=== PATIENT | female | born 1955 | race Caucasian/White ===

== ENCOUNTER → 2021-05-03 | Outpatient (CLI) | payer MEDICARE ==
[2018-10-14 11:15] VITALS: BP 141/70
[~2021-05-03] MED LIST: AMLO-187 PO; BUTA1TAB23 PO; CARV25TA2 PO; FLUT9.9S NS; LEVO500T8 PO; MECL12.582 PO; PRED20TA PO
--- NOTE | 2021-05-03 15:35 | RAD ---
EXAM: Chest, 2 views. HISTORY: COPD. COMPARISON: None. FINDINGS: 2 views of the chest are obtained. There is no infiltrate, pleural effusion or pneumothorax . The heart is normal in size. There is a cardiac pacemaker with leads in expected position. There is hyperinflation due to emphysema. There is mild chronic decreased vertebral body height at the mid th oracic levels. There are cholecystomy clips. IMPRESSION: Emphysema. No acute pulmonary finding. Electronically signed by: Karen Cruz MD (05/03/2021 3:32 PM) [id number]
== END ==
LOC: RAD 13:30
PROVIDERS: ATTEND Internal Medicine
DX: J43.9 Emphysema, unspecified (principal); Z95.0 Presence of cardiac pacemaker
CPT/HCPCS: 71046

== ENCOUNTER 2021-10-11 11:45 | Observation (INO) | payer MEDICARE ==
[~2021-10-11] VITALS: Ht 162.6 cm; Wt 58.9 kg
[~2021-10-11 11:45] MED LIST changes: -LEVO500T8 PO; +LEVO500T9 PO
--- NOTE | 2021-10-11 13:25 | PHYS DOC ---
Past Medical History Past Medical History: Hypertension, Other Additional Past Medical Histor: "PACEMAKER FOR HTN" Past Surgical History: Pacemaker Smoking Status: Current Every Day Smoker Alcohol Use: None Drug Use: None General Adult EDM: Chief Complaint: LOWER EXT PAIN HPI: HPI: Patient is a 66-year-old female who presents to the emergency department for left heel pain. Patient reports that she cut the back of her heel 2 weeks ago and has continued to have pain at the site. She states that she went to Dr. Cason's office last Sunday and he thought and wanted her to be admitted. The hospital is currently at full capacity and there are no beds available for the patient. She was to wait at home until there was a bed available but patient states that she could not wait any longer because her pain became too severe. She rates her pain 10 out of 10. She has been taking tramadol at home. Patient denies any fevers, body aches or joint pain, nausea, vomiting. Her vital signs are stable. She has been able to bear weight and ambulate on her foot. Review of Systems: Review of Systems: 14 body systems of the review of systems have been reviewed. See HPI for pertinent positive and negative responses, otherwise all other systems are negative, nonpertinent or noncontributory Heart Score: C/O Chest Pain: N/A Risk Factors: Risk Factors: DM, Current or recent (<one month) smoker, HTN, HLP, family history of CAD, obesity. Risk Scores: Score 0 - 3: 2.5% MACE over next 6 weeks - Discharge Home Score 4 - 6: 20.3% MACE over next 6 weeks - Admit for Clinical Observation Score 7 - 10: 72.7% MACE over next 6 weeks - Early Invasive Strategies Allergies: Allergies: Allergies Coded Allergies Type Severity Reaction Last Updated Verified Penicillins Allergy Intermediate 10/12/18 Yes aspirin Allergy Intermediate 10/12/18 Yes codeine Allergy Intermediate 10/12/18 Yes Physical Exam: PE: Constitutional: Well developed, well nourished, no acute distress, non-toxic appearance. [] HENT: Normocephalic, atraumatic, bilateral external ears normal, oropharynx mois t, no oral exudates, nose normal. [] Eyes: PERRL, EOMI, conjunctiva normal, no discharge. [] Neck: Normal range of motion, no tenderness, supple, no stridor. [] Cardiovascular:Heart rate regular rhythm, no murmur [] Lungs & Thorax: Bilateral breath sounds clear to auscultation [] Abdomen: Bowel sounds normal, soft, no tenderness, no masses, no pulsatile masses. [] Skin: Warm, dry, no erythema, no rash. [] Back: Normal range of motion Extremities: No tenderness, no cyanosis, no clubbing, ROM intact, no edema. Left foot: 3 cm laceration noted to patient's heel that appears to be healing we ll without any signs of infection, no redness/warmth/drainage, pain with palpation to site, neuro intact-2+ DP pulse, range of motion intact Neurologic: Alert and oriented X 3, normal motor function, normal sensory function, no focal deficits noted. [] Psychologic: Affect normal, judgement normal, mood normal. [] Current Patient Data: Labs: Laboratory Tests Test 10/11/21 13:48 White Blood Count 12.0 x10^3/uL Red Blood Count 4.15 x10^6/uL Hemoglobin 13.8 g/dL Hematocrit 40.4 % Mean Corpuscular Volume 97 fL Mean Corpuscular Hemoglobin 33 pg Mean Corpuscular Hemoglobin Concent 34 g/dL Red Cell Distribution Width 12.3 % Platelet Count 331 x10^3/uL Neutrophils (%) (Auto) 68 % Lymphocytes (%) (Auto) 22 % Monocytes (%) (Auto) 7 % Eosinophils (%) (Auto) 2 % Basophils (%) (Auto) 1 % Neutrophils # (Auto) 8.2 x10^3/uL Lymphocytes # (Auto) 2.6 x10^3/uL Monocytes # (Auto) 0.9 x10^3/uL Eosinophils # (Auto) 0.3 x10^3/uL Basophils # (Auto) 0.1 x10^3/uL Sodium Level 141 mmol/L Potassium Level 3.8 mmol/L Chloride Level 103 mmol/L Carbon Dioxide Level 28 mmol/L Anion Gap 10 Blood Urea Nitrogen 18 mg/dL Creatinine 0.7 mg/dL Estimated GFR (Cockcroft-Gault) 83.7 BUN/Creatinine Ratio 26 Glucose Level 95 mg/dL Lactic Acid Level 0.5 mmol/L Calcium Level 9.1 mg/dL Total Bilirubin 0.3 mg/dL Aspartate Amino Transf (AST/SGOT) 10 U/L Alanine Aminotransferase (ALT/SGPT) 18 U/L Alkaline Phosphatase 102 U/L Total Protein 7.3 g/dL Albumin 3.5 g/dL Albumin/Globulin Ratio 0.9 Current Medications Medications (Trade) Dose Ordered Sig/Seth Route PRN Reason Start Time Stop Time Status Last Admin Dose Admin Fentanyl Citrate (Fentanyl 2ml Vial) 50 mcg 1X ONCE IVP 10/11/21 13:30 10/11/21 13:31 DC 10/11/21 13:46 Sodium Chloride 1,000 ml @ 1,000 mls/hr 1X ONCE IV 10/11/21 13:30 10/11/21 14:29 DC 10/11/21 13:30 Ondansetron HCl (Zofran) 4 mg PRN Q8HRS PRN IVP NAUSEA/VOMITING 10/11/21 15:15 10/12/21 15:14 Fentanyl Citrate (Fentanyl 2ml Vial) 50 mcg 1X ONCE IVP 10/11/21 15:15 10/11/21 15:18 DC 10/11/21 15:56 EKG: EKG: [] Radiology/Procedures: Radiology/Procedures: []PROCEDURE: FOOT LEFT 3V EXAMINATION: Left foot radiograph. VIEWS: 3 views COMPARISON: None INDICATION:66 years, Female, wound on heel rule out osteomyelitis FINDINGS: Soft tissue edema and wound overlying the plantar surface of the heel with no associated bone erosion or periosteal reaction of the calcaneus. There is a bipartite medial sesamoid bone. No evidence of fracture or malalignment of the foot or ankle. Few small calcifications likely of the long plantar ligament. IMPRESSION: Soft tissue wound overlying the calcaneus with no radiographic evidence of osteomyelitis. If there is ongoing concern then follow-up with MRI is recommended. Electronically signed by: Raysa Gooden DO (10/11/2021 1:41 PM) [id number] DICTATED and SIGNED BY: RAYSA GOODEN DO DATE: 10/11/21 [id number] 0 Course & Med Decision Making: Course & Med Decision Making Pertinent Labs and Imaging studies reviewed. (See chart for details) [] Patient presents to the emergency department for pain management. Patient has a wound to the heel of her left foot that she states occurred 2 weeks ago, she states that Dr. Isabel saw her last Sunday and wanted to admit her. When asked if patient was a direct admit she states that she is supposed to be a direct admit and was told by the nursing supervisor tank storage that there was no beds available and that she should wait at home until there is a bed available if she is not any acute distress patient stated that she could not wait at home any longer because the pain was too severe. She reports that she has been taking tramadol at home. She is a poor historian and can only tell me that she needs to be admitted for heel pain. She states that she has a history of blockages that were seen on arterial studies in July. Patient's wound to her heel appears well healing without any signs of infection. Work-up in the ER consisted of blood work and x-ray to rule out osteomyelitis. Patient treated with IV fluids and pain medication. Lab work mostly unremarkable, non specific mild leukocytosis I spoke to Rebecca Pastor who requested an arterial ultrasound and vascular consult. Her sound shows left proximal stenosis and left deep femoral artery stenosis approximately 95 to 99%. I discussed these findings with Dr. Rg the vascular doctor on-call at [facility] who stated that they could see the patient outpatient on Sunday for an angio or they could see her while admitted. I spoke with Dr. Isabel who requested admittance of patient for this. I discussed findings with patient and care plan and she is agreeable at this time. ER bridge orders placed [id number]. Suleman Disclaimer: Suleman Disclaimer: This electronic medical record was generated, in whole or in part, using a voice recognition dictation system. Departure Departure Impression: Primary Impression: Peripheral artery disease Additional Impression: Intractable pain Disposition: ADMITTED INPATIENT Admitting Physician: Grace Isabel Condition: GOOD Referrals: GRACE ISABEL MD (PCP) [employer] Oct 11, 2021 13:25
[2021-10-11] MEDS ORDERED: IV NORMAL SALINE 1000ML BAG 1,000 ML IV ONE (13:30)
[2021-10-11] MEDS ORDERED: fentaNYL PF VIAL 100 MCG/2 ML VIAL IVP ONE ×2 (13:30→15:15)
--- NOTE | 2021-10-11 13:43 | RAD ---
EXAMINATION: Left foot radiograph. VIEWS: 3 views COMPARISON: None INDICATION:66 years, Female, wound on heel rule out osteomyelitis FINDINGS: Soft tissue edema and wound overlying the plantar surface of the heel with no associated bone erosion or periosteal reaction of the calcaneus. There is a bipartite medial sesamoid bone. No evidence of f racture or malalignment of the foot or ankle. Few small calcifications likely of the long plantar lig ament. IMPRESSION: Soft tissue wound overlying the calcaneus with no radiographic evidence of osteomyelitis. If there is ongoing concern then follow-up with MRI is recommended. Electronically signed by: Freedom Gooden DO (10/11/2021 1:41 PM) [id number]
[2021-10-11 13:57] LABS: BASO # 0.1 x10^3/uL (0.0-0.2); BASO % 1 % (0-3); EOS # 0.3 x10^3/uL (0.0-0.7); EOS % 2 % (0-3); HEMATOCRIT 40.4 % (36.0-47.0); HEMOGLOBIN 13.8 g/dL (12.0-15.5); LYMPH # 2.6 x10^3/uL (1.0-4.8); LYMPH % 22 % (24-48); MEAN CORPUSCULAR HEMOGLOBIN 33 pg (25-35); MEAN CORPUSCULAR HGB CONC 34 g/dL (31-37); MEAN CORPUSCULAR VOLUME 97 fL (79-100); MONO # 0.9 x10^3/uL (0.0-1.1); MONO % 7 % (0-9); NEUT # 8.2 x10^3/uL (1.8-7.7); NEUT % 68 % (31-73); PLATELET COUNT 331 x10^3/uL (140-400); RED BLOOD COUNT 4.15 x10^6/uL (3.50-5.40); RED CELL DISTRIBUTION WIDTH 12.3 % (11.5-14.5)
[2021-10-11 14:06] LABS: CALCIUM 9.1 mg/dL (8.5-10.1); CREATININE 0.7 mg/dL (0.6-1.0); GFR 83.7; POTASSIUM 3.8 mmol/L (3.5-5.1)
[2021-10-11 14:12] LABS: ALBUMIN 3.5 g/dL (3.4-5.0); ALBUMIN/GLOBULIN RATIO 0.9 (1.0-1.7); TOTAL BILIRUBIN 0.3 mg/dL (0.2-1.0); TOTAL PROTEIN 7.3 g/dL (6.4-8.2)
--- NOTE | 2021-10-11 14:53 | RAD ---
US LEFT LOWER EXTREMITY ARTERIAL DUPLEX EVAL Indication: Reason: vascular disease, c/o lower extremity pain; LT heel ulcer / Spl. Instructions: / History: Comparison: None. Procedure: Real-time grayscale, color flow Doppler, and Doppler spectral waveform analysis of the art erial system of the lower extremity is performed. Findings: Left lower extremity: Monophasic wave forms throughout the left lower extremity. Severe atheromatous plaque proximally. There is collateral vessels within the proximal to mid lower extremity. Elevated v elocity within the deep femoral artery measures 413 cm/s. Diminished flow within the distal left lowe r extremity. IMPRESSION: 1. Monophasic waveforms throughout the left lower extremity, may indicate proximal stenosis. CT calixto ogram can further assess as clinically warranted. 2. Severe atheromatous plaque. 3. Severely elevated velocity within the left deep femoral artery, may indicate 95-99 percent stenos is. Electronically signed by: Ricardo Troy DO (10/11/2021 2:51 PM) [facility]
[2021-10-11] MEDS ORDERED: ONDANSETRON PF 4 MG/2 ML VIAL. IVP PRN (15:15)
[2021-10-11] MEDS: ASPIRIN 325 MG TABLET PO SCH (17:00)
[2021-10-11 19:00] VITALS: BP 118/65
[2021-10-11] MEDS ORDERED: MECLIZINE HCL 12.5 MG TABLET. PO PRN (19:45)
[2021-10-11] MEDS: IV NORMAL SALINE 1000ML BAG 1,000 ML IV SCH (20:15)
[2021-10-11] MEDS: fentaNYL PF VIAL 100 MCG/2 ML VIAL IVP PRN (22:24)
[2021-10-11 23:02] VITALS: BP 141/62
[2021-10-12] VITALS (13 sets, daily range): BP systolic 110–153; BP diastolic 60–82
[2021-10-12] MEDS: fentaNYL PF VIAL 100 MCG/2 ML VIAL IVP PRN ×4 (01:54→15:00)
[2021-10-12 04:10] LABS: BASO # 0.1 x10^3/uL (0.0-0.2); BASO % 1 % (0-3); EOS # 0.2 x10^3/uL (0.0-0.7); EOS % 3 % (0-3); HEMATOCRIT 35.8 % (36.0-47.0); HEMOGLOBIN 12.4 g/dL (12.0-15.5); LYMPH # 3.3 x10^3/uL (1.0-4.8); LYMPH % 44 % (24-48); MEAN CORPUSCULAR HEMOGLOBIN 34 pg (25-35); MEAN CORPUSCULAR HGB CONC 35 g/dL (31-37); MEAN CORPUSCULAR VOLUME 98 fL (79-100); MONO # 0.8 x10^3/uL (0.0-1.1); MONO % 10 % (0-9); NEUT # 3.3 x10^3/uL (1.8-7.7); NEUT % 43 % (31-73); PLATELET COUNT 291 x10^3/uL (140-400); RED BLOOD COUNT 3.65 x10^6/uL (3.50-5.40); RED CELL DISTRIBUTION WIDTH 12.6 % (11.5-14.5); WHITE BLOOD COUNT 7.6 x10^3/uL (4.0-11.0)
[2021-10-12 04:16] LABS: PROTHROMBIN TIME PATIENT 13.1 SEC (11.7-14.0)
[2021-10-12 04:51] LABS: ALBUMIN 2.9 g/dL (3.4-5.0); ALBUMIN/GLOBULIN RATIO 0.9 (1.0-1.7); CREATININE 0.7 mg/dL (0.6-1.0); GFR 83.7; POTASSIUM 4.1 mmol/L (3.5-5.1); TOTAL BILIRUBIN 0.3 mg/dL (0.2-1.0); TOTAL PROTEIN 6.1 g/dL (6.4-8.2)
--- NOTE | 2021-10-12 06:21 | EKG ---
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
--- NOTE | 2021-10-12 07:30 | RAD ---
US RIGHT LOWER EXTREMITY ARTERIAL DUPLEX EVAL Indication: Reason: Peripheral arterial disease LT LEG SCANNED ON 10-11-21. Instructions: / Hist ory: Comparison: None. Procedure: Real-time grayscale, color flow Doppler, and Doppler spectral waveform analysis of the art erial system of the lower extremity is performed. Findings: Right lower extremity: Monophasic waveform within the superficial femoral, popliteal, posterior tibia l, peroneal, anterior tibial and dorsalis pedis arteries. Mildly elevated velocity within the right c ommon femoral artery measures 164 cm/s. Mildly elevated velocity within the deep femoral artery measu res 165 cm/s. Moderate atheromatous plaque. No occlusion. IMPRESSION: 1. Mildly elevated velocity within the right common femoral and deep femoral arteries, may indicate 30-49 percent stenosis. 2. Monophasic waveforms throughout the majority of the right lower extremity, may relate to proximal stenosis. 3. Moderate atheromatous plaque. Electronically signed by: Ricardo Troy DO (10/12/2021 7:27 AM) [facility]
[2021-10-12] MEDS: CARVEDILOL 12.5 MG TABLET. PO SCH ×2 (08:00→17:00)
--- NOTE | 2021-10-12 08:37 | RAD ---
EXAMINATION: Chest radiograph. VIEWS: Single AP view of the chest COMPARISON: 05/03/2021 INDICATION:66 years, Female, shortness of breath. FINDINGS: Left chest tube leak cardiac pacing device is in expected position. Normal cardiomediastinal silhouet te. Similar hyperinflation due to emphysema. No focal consolidation. No pleural effusion or pneumotho rax. No acute osseous process. IMPRESSION: No acute cardiopulmonary process. Electronically signed by: Freedom Gooden DO (10/12/2021 8:35 AM) [id number]
[2021-10-12] MEDS: FLUTICASONE 50MCG/NASAL SPRAY 16GM BOTTLE. NS SCH (09:00)
[2021-10-12] MEDS: ASPIRIN 325 MG TABLET PO SCH (09:00)
--- NOTE | 2021-10-12 09:28 | PDOC ---
Provider Note Date of Service: DATE: 10/12/21 TIME: 09:27 Provider Note Pt seen .H&P dictated.#[id number]. Justifications for Admission Other Justification JULIETA ISABEL MD Oct 12, 2021 09:28
--- NOTE | 2021-10-12 09:34 | PDOC2 ---
CONSULT Date of Service Date of Service DATE: 10/12/21 TIME: 09:21 Reason for Consult Reason for Consult: Heel ulcer PAD Referring Physician Referring Physician: Dr. 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 Who presents with left heel pain x3 weeks. She noticed a fissure starting on her left heel 3 weeks ago that has progressed and become more painful that has limited her job where she is on her feet most of the day. 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 She also has a small ulcer to her left knee that has been present for a couple of months and not healing. She has been a chronic smoker since age 18, however quit 4 days prior to admission. She denies any fevers, chills. She denies any procedures or surgeries to her legs or blood flow in the past. She does take a daily baby aspirin. She denies kidney disease. Past Medical History Cardiovascular: HTN, Other (Pacemaker) Past Surgical History Past Surgical History: Pacemaker, No pertinent history Family History Family History: Chronic Bronchitis Social History ALCOHOL: occassional Drugs: None Current Problem List Problem List Problems Medical Problems: (1) Intractable pain Status: Acute (2) Peripheral artery disease Status: Acute Current Medications Current Medications Current Medications Fentanyl Citrate (Fentanyl 2ml Vial) 50 mcg 1X ONCE IVP Last administered on 10/11/21at 13:46; Start 10/11/21 at 13:30; Stop 10/11/21 at 13:31; Status DC Sodium Chloride 1,000 ml @ 1,000 mls/hr 1X ONCE IV Last administered on 10/11/21at 13:30; Start 10/11/21 at 13:30; Stop 10/11/21 at 14:29; Status DC Ondansetron HCl (Zofran) 4 mg PRN Q8HRS PRN IVP NAUSEA/VOMITING; Start 10/11/21 at 15:15; Stop 10/12/21 at 15:14 Fentanyl Citrate (Fentanyl 2ml Vial) 50 mcg 1X ONCE IVP Last administered on 10/11/21at 15:56; Start 10/11/21 at 15:15; Stop 10/11/21 at 15:18; Status DC Aspirin (Aaron Aspirin) 325 mg DAILY PO ; Start 10/11/21 at 17:00 Amlodipine Besylate (Norvasc) 10 mg DAILY PO ; Start 10/12/21 at 09:00 Meclizine HCl (Antivert) 25 mg PRN Q6HRS PRN PO vertigo; Start 10/11/21 at 19:45 Carvedilol (Coreg) 12.5 mg BIDWMEALS PO ; Start 10/12/21 at 08:00 Fluticasone Propionate (Flonase) 2 spray DAILY NS ; Start 10/12/21 at 09:00 Sodium Chloride 1,000 ml @ 75 mls/hr [id number] IV Last administered on 10/11/21at 20:15; Start 10/11/21 at 20:15 Acetaminophen/ Hydrocodone Bitart (Lortab 5/325) 1 tab PRN Q6HRS PRN PO PAIN; Start 10/11/21 at 20:15 Fentanyl Citrate (Fentanyl 2ml Vial) 50 mcg PRN Q3HRS PRN IVP PAIN Last administered on 10/12/21at 05:38; Start 10/11/21 at 20:45 Active Scripts Active Flonase Allergy Relief (Fluticasone Propionate) 9.9 Ml [place].susp 2 Sprays NS DAILY 7 Days Meclizine Hcl 12.5 Mg Tablet 25 Mg PO PRN Q6HRS PRN 30 Days Reported Carvedilol 25 Mg Tablet 12.5 Mg PO BIDWMEALS Amlodipine Besylate 10 Mg Tablet 10 Mg PO DAILY Allergies Allergies: Coded Allergies: Penicillins (Verified Allergy, Intermediate, 10/11/21) codeine (Verified Allergy, Intermediate, 10/11/21) ROS General: No: Chills, Other (Fever) Hematological and Lymphatic: No: Bleeding Problems, Blood Clots Respiratory: No: Cough, Shortness of breath Cardiovascular: No Chest Pain, No Edema Gastrointestinal: No Nausea, No Vomiting Genitourinary: YES Other (Blood in her urine, known issue) Musculoskeletal: Yes Gait Disturbance, Yes Pain In: (Left foot left leg) Skin: Yes Skin Lesion Changes Physical Exam General: Alert, Oriented X3, Cooperative, No acute distress HEENT: Atraumatic Lungs: Normal air movement (Room air) Heart: Regular rate, Other (No edema) Abdomen: Soft, No tenderness, No masses Extremities: Normal pulses (Bilateral radial pulses), Other (2+ right femoral pulse, cannot appreciate left femoral, she does have a palpable left PT. Her left toes are red with cap refill at about 4 seconds. Motor function and sensation intact. Right foot with cap refill at 3 seconds and palpable PT pulse.) Skin: Other (She has a small circular scab to her left anterior knee, she has a small fissure to her left heel that appears to go through the subcutaneous tissue, there is no fluctuance or drainage or surrounding erythema. She has no wounds to the right foot.) Neuro: Normal speech, Normal tone, Sensation intact Psych/Mental Status: Mental status NL, Mood NL Vitals VITALS Vital Signs Date Time Temp Pulse Resp B/P (MAP) Pulse Ox O2 Delivery O2 Flow Rate FiO2 10/12/21 07:00 97.9 68 16 135/70 (91) 93 Room Air 97.9 Labs Labs Laboratory Tests Test 10/11/21 13:48 10/11/21 17:15 10/12/21 03:10 White Blood Count 12.0 x10^3/uL (4.0-11.0) 7.6 x10^3/uL (4.0-11.0) Red Blood Count 4.15 x10^6/uL (3.50-5.40) 3.65 x10^6/uL (3.50-5.40) Hemoglobin 13.8 g/dL (12.0-15.5) 12.4 g/dL (12.0-15.5) Hematocrit 40.4 % (36.0-47.0) 35.8 % (36.0-47.0) Mean Corpuscular Volume 97 fL (79-100) 98 fL (79-100) Mean Corpuscular Hemoglobin 33 pg (25-35) 34 pg (25-35) Mean Corpuscular Hemoglobin Concent 34 g/dL (31-37) 35 g/dL (31-37) Red Cell Distribution Width 12.3 % (11.5-14.5) 12.6 % (11.5-14.5) Platelet Count 331 x10^3/uL (140-400) 291 x10^3/uL (140-400) Neutrophils (%) (Auto) 68 % (31-73) 43 % (31-73) Lymphocytes (%) (Auto) 22 % (24-48) 44 % (24-48) Monocytes (%) (Auto) 7 % (0-9) 10 % (0-9) Eosinophils (%) (Auto) 2 % (0-3) 3 % (0-3) Basophils (%) (Auto) 1 % (0-3) 1 % (0-3) Neutrophils # (Auto) 8.2 x10^3/uL (1.8-7.7) 3.3 x10^3/uL (1.8-7.7) Lymphocytes # (Auto) 2.6 x10^3/uL (1.0-4.8) 3.3 x10^3/uL (1.0-4.8) Monocytes # (Auto) 0.9 x10^3/uL (0.0-1.1) 0.8 x10^3/uL (0.0-1.1) Eosinophils # (Auto) 0.3 x10^3/uL (0.0-0.7) 0.2 x10^3/uL (0.0-0.7) Basophils # (Auto) 0.1 x10^3/uL (0.0-0.2) 0.1 x10^3/uL (0.0-0.2) Sodium Level 141 mmol/L (136-145) 142 mmol/L (136-145) Potassium Level 3.8 mmol/L (3.5-5.1) 4.1 mmol/L (3.5-5.1) Chloride Level 103 mmol/L (98-107) 106 mmol/L (98-107) Carbon Dioxide Level 28 mmol/L (21-32) 28 mmol/L (21-32) Anion Gap 10 (6-14) 8 (6-14) Blood Urea Nitrogen 18 mg/dL (7-20) 14 mg/dL (7-20) Creatinine 0.7 mg/dL (0.6-1.0) 0.7 mg/dL (0.6-1.0) Estimated GFR (Cockcroft-Gault) 83.7 83.7 BUN/Creatinine Ratio 26 (6-20) 20 (6-20) Glucose Level 95 mg/dL (70-99) 85 mg/dL (70-99) Lactic Acid Level 0.5 mmol/L (0.4-2.0) Calcium Level 9.1 mg/dL (8.5-10.1) 8.0 mg/dL (8.5-10.1) Total Bilirubin 0.3 mg/dL (0.2-1.0) 0.3 mg/dL (0.2-1.0) Aspartate Amino Transf (AST/SGOT) 10 U/L (15-37) 11 U/L (15-37) Alanine Aminotransferase (ALT/SGPT) 18 U/L (14-59) 16 U/L (14-59) Alkaline Phosphatase 102 U/L (46-116) 84 U/L (46-116) Total Protein 7.3 g/dL (6.4-8.2) 6.1 g/dL (6.4-8.2) Albumin 3.5 g/dL (3.4-5.0) 2.9 g/dL (3.4-5.0) Albumin/Globulin Ratio 0.9 (1.0-1.7) 0.9 (1.0-1.7) SARS-CoV-2 RNA ([place]) Negative (Negative) SARS-CoV-2 Antigen (Rapid) Negative (NEGATIVE) Prothrombin Time 13.1 SEC (11.7-14.0) Prothromb Time International Ratio 1.0 (0.8-1.1) Laboratory Tests Test 10/11/21 13:48 10/11/21 17:15 10/12/21 03:10 White Blood Count 12.0 x10^3/uL (4.0-11.0) 7.6 x10^3/uL (4.0-11.0) Red Blood Count 4.15 x10^6/uL (3.50-5.40) 3.65 x10^6/uL (3.50-5.40) Hemoglobin 13.8 g/dL (12.0-15.5) 12.4 g/dL (12.0-15.5) Hematocrit 40.4 % (36.0-47.0) 35.8 % (36.0-47.0) Mean Corpuscular Volume 97 fL (79-100) 98 fL (79-100) Mean Corpuscular Hemoglobin 33 pg (25-35) 34 pg (25-35) Mean Corpuscular Hemoglobin Concent 34 g/dL (31-37) 35 g/dL (31-37) Red Cell Distribution Width 12.3 % (11.5-14.5) 12.6 % (11.5-14.5) Platelet Count 331 x10^3/uL (140-400) 291 x10^3/uL (140-400) Neutrophils (%) (Auto) 68 % (31-73) 43 % (31-73) Lymphocytes (%) (Auto) 22 % (24-48) 44 % (24-48) Monocytes (%) (Auto) 7 % (0-9) 10 % (0-9) Eosinophils (%) (Auto) 2 % (0-3) 3 % (0-3) Basophils (%) (Auto) 1 % (0-3) 1 % (0-3) Neutrophils # (Auto) 8.2 x10^3/uL (1.8-7.7) 3.3 x10^3/uL (1.8-7.7) Lymphocytes # (Auto) 2.6 x10^3/uL (1.0-4.8) 3.3 x10^3/uL (1.0-4.8) Monocytes # (Auto) 0.9 x10^3/uL (0.0-1.1) 0.8 x10^3/uL (0.0-1.1) Eosinophils # (Auto) 0.3 x10^3/uL (0.0-0.7) 0.2 x10^3/uL (0.0-0.7) Basophils # (Auto) 0.1 x10^3/uL (0.0-0.2) 0.1 x10^3/uL (0.0-0.2) Sodium Level 141 mmol/L (136-145) 142 mmol/L (136-145) Potassium Level 3.8 mmol/L (3.5-5.1) 4.1 mmol/L (3.5-5.1) Chloride Level 103 mmol/L (98-107) 106 mmol/L (98-107) Carbon Dioxide Level 28 mmol/L (21-32) 28 mmol/L (21-32) Anion Gap 10 (6-14) 8 (6-14) Blood Urea Nitrogen 18 mg/dL (7-20) 14 mg/dL (7-20) Creatinine 0.7 mg/dL (0.6-1.0) 0.7 mg/dL (0.6-1.0) Estimated GFR (Cockcroft-Gault) 83.7 83.7 BUN/Creatinine Ratio 26 (6-20) 20 (6-20) Glucose Level 95 mg/dL (70-99) 85 mg/dL (70-99) Lactic Acid Level 0.5 mmol/L (0.4-2.0) Calcium Level 9.1 mg/dL (8.5-10.1) 8.0 mg/dL (8.5-10.1) Total Bilirubin 0.3 mg/dL (0.2-1.0) 0.3 mg/dL (0.2-1.0) Aspartate Amino Transf (AST/SGOT) 10 U/L (15-37) 11 U/L (15-37) Alanine Aminotransferase (ALT/SGPT) 18 U/L (14-59) 16 U/L (14-59) Alkaline Phosphatase 102 U/L (46-116) 84 U/L (46-116) Total Protein 7.3 g/dL (6.4-8.2) 6.1 g/dL (6.4-8.2) Albumin 3.5 g/dL (3.4-5.0) 2.9 g/dL (3.4-5.0) Albumin/Globulin Ratio 0.9 (1.0-1.7) 0.9 (1.0-1.7) SARS-CoV-2 RNA ([place]) Negative (Negative) SARS-CoV-2 Antigen (Rapid) Negative (NEGATIVE) Prothrombin Time 13.1 SEC (11.7-14.0) Prothromb Time International Ratio 1.0 (0.8-1.1) Images Images Arterial duplex reviewed with diffuse disease, monophasic flow throughout distally, left common disease Assessment/Plan Assessment/Plan Peripheral arterial disease with lifestyle limiting claudication and wound Pacemaker Left heel fissure Tobacco use Pleasant 66-year-old female who used to be a chronic smoker however quit 4 days ago with severe peripheral arterial disease with lifestyle limiting claudication and a heel fissure present x3 weeks. She would benefit from an arteriogram with possible intervention focused on the left leg. I discussed the procedure with her, the details, risks/benefits and possible post procedure course. She exhibited understanding and agreed to proceed as recommended. The heel fissure is clean and does not require surgical debridement. She currently takes a daily baby aspirin and is aware if intervention done may need to initiate Plavix post procedure. Plan for arteriogram later today. DEMOND SANCHEZ Oct 12, 2021 09:33
[2021-10-12] MEDS: IV NORMAL SALINE 1000ML BAG 1,000 ML IV SCH ×2 (09:59→23:08)
--- NOTE | 2021-10-12 10:14 | HP ---
DATE OF SERVICE: 10/12/2021 ADMIT DATE: 10/11/2021 MEDICAL HISTORY AND PHYSICAL LOCATION: 426. REASON FOR ADMISSION TO THE HOSPITAL: Ischemic pain in the left foot. HISTORY OF PRESENT ILLNESS: The patient is a 66-year-old female, patient is a chronic heavy smoker, history of COPD and hypertension, coronary artery disease. The patient was having pain in the left leg going on for some time. She has seen Dr. Vazquez, Cardiology, had a Doppler arterial shows a vascular problem and supposed to have further intervention, in the meantime holidays came up. 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 The patient came to the Emergency Room. Arterial Doppler shows a significant blockage, was admitted to the hospital for arteriogram and vascular intervention. PAST MEDICAL HISTORY: Has a history of hypertension, COPD, CAD, vascular disease. PAST SURGICAL HISTORY: Pacemaker. ALLERGIES: PENICILLIN AND CODEINE. PERSONAL HISTORY: Smokes at least 1 pack for 40 years. Denies alcohol or street drugs. FAMILY HISTORY: Positive for heart disease and vascular problem, COPD. MEDICATIONS AT HOME: The patient is on amlodipine 10 mg, Coreg 12.5 twice a day, Flonase twice a day, meclizine and 1 baby aspirin. REVIEW OF SYSTEMS: Has somewhat sinus cold. The patient is not vaccinated for COVID. Denies any chest pain. Complains of pain in the left leg and heel. Rest of the 14 systems reviewed and negative. PHYSICAL EXAMINATION: VITAL SIGNS: At the time of admission, temperature 98, pulse 73, respirations 18, blood pressure 118/65, 95% on room air. HEENT: Head is atraumatic. Pupils equal. Oral cavity, dentures. NECK: Supple. Thyroid not enlarged. JVD not elevated. CHEST: Symmetrical, COPD pattern. CARDIOVASCULAR: S1, S2. LUNGS: No wheezing. ABDOMEN: Soft, bowel sounds present. No mass palpable. Scar of gallbladder surgery, right upper quadrant. EXTERNAL GENITALIA: No Urias. RECTUM: Deferred. EXTREMITIES: The patient has a pinkish discoloration of the left foot, has a crack 1 cm in the left heel, could not feel dorsalis posterior or at the popliteal femoral left vein, right also slightly decreased. NEUROLOGIC: Neural: Cranial nerves intact. Power 5/5. Moving all extremities. LABORATORY DATA: White count 12, hemoglobin 13, platelets 331. INR 1.0. Electrolytes, sodium 131, potassium 3.8, chloride 103, bicarb 28, BUN 18, creatinine 0.7, glucose 95. LFTs normal. COVID test, both rapid and RNA test is negative. Chest x-ray, no acute process and x-ray of the foot, no osteomyelitis, no foreign body. Doppler shows monophasic waveforms throughout the left lower extremity. FINAL IMPRESSION: 1. Severe peripheral vascular disease. 2. Left heel skin crack breakdown secondary to vascular disease. 3. Chronic obstructive pulmonary disease. 4. Smoker heavy. 5. Pacemaker. PLAN: At this time, admit to the hospital, scheduled for arteriogram, vascular consult and pain control and see how she improves. ENID/ENMA DR: Kg TID: [id number]
--- NOTE | 2021-10-12 10:17 | NUR ---
SW following. Discussed with RN, pt from home, room air, NPO, rapid COVID-19 negative. Pt having an arteriogram today. Vascular and Wound Care following. RN advised no SW needs at this time. SW will continue to follow.
[2021-10-12] MEDS ORDERED: IODIXANOL 320 MG/ML 100 ML VIAL. ONE (11:42)
[2021-10-12] MEDS ORDERED: LIDOCAINE WITH 8.4% SOD BICARB 3 ML DISP.SYRIN. ONE ×2 (11:42→13:28)
--- NOTE | 2021-10-12 12:06 | PDOC ---
Provider Note Date of Service: DATE: 10/12/21 TIME: 12:05 Provider Note Preprocedure note: She presents for elective angiogram and possible percutaneous intervention. Risks and benefits were discussed in detail. She acknowledged and requested to proceed. ASA 3 Mallampati 2 She denies any previous family or personal history of adverse reaction to anesthetics. Allergies include penicillin and codeine. Plan angiogram of abdomen and bilateral lower extremities with possible percutaneous intervention. Will use moderate sedation and local anesthetic. Justifications for Admission Other Justification MARY ELLEN ANDERSON MD Oct 12, 2021 12:06
[2021-10-12] MEDS ORDERED: HEPARIN for IV BOLUS 10,000 UNIT/10 ML VIAL. ONE (12:17)
[2021-10-12] MEDS ORDERED: MIDAZOLAM HCL/PF 2 MG/2 ML VIAL. ONE (12:17)
[2021-10-12] MEDS ORDERED: fentaNYL PF VIAL 100 MCG/2 ML VIAL ONE (12:17)
[2021-10-12] MEDS ORDERED: fentaNYL PF VIAL 100 MCG/2 ML VIAL IV ONE (12:45)
[2021-10-12] MEDS ORDERED: MIDAZOLAM HCL/PF 2 MG/2 ML VIAL. IV ONE (12:45)
[2021-10-12] MEDS ORDERED: LIDOCAINE WITH 8.4% SOD BICARB 3 ML DISP.SYRIN. IJ ONE (12:45)
[2021-10-12] MEDS ORDERED: IODIXANOL 320 MG/ML 100 ML VIAL. IART ONE (12:45)
[2021-10-12] MEDS ORDERED: HEPARIN for IV BOLUS 10,000 UNIT/10 ML VIAL. IV ONE (13:00)
--- NOTE | 2021-10-12 13:57 | PDOC4 ---
BRIEF OPERATIVE NOTE Date: Oct 12, 2021 Pre-Op Diagnosis Peripheral arterial disease with left foot rest pain and ulcer Left heel ulcer (linear fissure) Tobacco abuse Hypertension Post-Op Diagnosis Same Procedure Performed Ultrasound-guided right femoral artery access Abdominal aortogram with selective bilateral lower extremity arteriogram Left superficial femoral artery and proximal popliteal artery angioplasty Right femoral Perclose placement Surgeon Lynne Anesthesia Type: Local, Conscious Sedation Blood Loss 2 mL Specimens Obtained None Findings Long segment occlusion of mid and distal left superficial femoral artery with focal proximal left popliteal artery high-grade stenosis (less than 10% residual following angioplasty) Single-vessel runoff via left anterior tibial artery to the dorsalis pedis artery on the foot (left posterior tibial and peroneal artery occlusion) Focal high-grade (80%) distal right superficial femoral artery focal stenosis Complications None MARY ELLEN ANDERSON MD Oct 12, 2021 13:57
[2021-10-12] MEDS ORDERED: CLOPIDOGREL BISULFATE 75 MG TABLET PO ONE (14:00)
--- NOTE | 2021-10-12 14:05 | NUR ---
Wound Care: Patient off unit at this time for procedure We will see patient again tomorrow.
--- NOTE | 2021-10-12 15:45 | OP ---
DATE OF SURGERY: 10/12/2021 PREOPERATIVE DIAGNOSES: 1. Peripheral vascular disease with left heel pressure ulcer and ischemic rest pain. 2. Hypertension. 3. Tobacco abuse. POSTOPERATIVE DIAGNOSES: 1. Peripheral vascular disease with left heel pressure ulcer and ischemic rest pain. 2. Hypertension. 3. Tobacco abuse. PROCEDURES PERFORMED: 1. Ultrasound-guided right femoral artery access. 2. Abdominal aortogram with selective bilateral lower extremity arteriogram. 3. Left superficial femoral artery and proximal popliteal artery balloon angioplasty (conventional and drug-coated balloon). 4. Right femoral Perclose placement. SURGEON: Don Batista MD ANESTHESIA: Moderate sedation, local (both physician and nursing supervision was performed for moderate sedation, given a total of 2 mg of Versed and 75 mcg of fentanyl. Total sedation time was 90 minutes). INDICATIONS: The patient is a 66-year-old female with hypertension and long history of tobacco abuse who presents with a several-week history of pain in her left heel. She also has an area of fissure with some darkening of the skin consistent with early gangrenous changes. She presents for angiogram and possible percutaneous intervention. FINDINGS: Aortoiliac angiogram: There are 2 right renal arteries and a single left renal artery. There is no significant renal artery narrowing. There is good filling on both nephrograms. There is some diffuse atherosclerotic plaquing in the distal aorta and bilateral common and external iliac arteries with no hemodynamically significant areas of narrowing noted. Both common iliac arteries are patent without significant narrowing. Both internal iliac arteries are similarly patent without significant narrowing. There is approximately 30-40% narrowing at the proximal right external iliac artery, but this was not felt to be hemodynamically significant. No significant left external iliac artery narrowing. Right lower extremity arteriogram: The right common, superficial and deep femoral arteries are patent. There is a focal [id number] right superficial femoral artery stenosis up to 80% for less than 1 cm in length. The right popliteal artery is patent to the tibial trifurcation. The main outflow is via the anterior tibial artery with good flow to the dorsalis pedis artery on the foot. The right tibioperoneal trunk is patent with outflow to the very small right peroneal artery. The right posterior tibial artery is patent proximally, but very small in diameter. There is long segment occlusion of the posterior tibial artery with collateral reconstitution of a very small posterior tibial artery at the ankle. Left lower extremity arteriogram: The left common and deep femoral arteries are patent without significant narrowing. The origin of the left superficial femoral artery is patent, but there is occlusion starting a few centimeters from its origin. There is collateral reconstitution of the proximal left popliteal artery. There is a high-grade (greater than 70%) focal area of narrowing in the mid left popliteal artery above the knee joint. The mid and distal popliteal arteries are patent without significant narrowing. The anterior tibial artery is patent throughout its course to the dorsalis pedis artery of the foot. The left tibioperoneal trunk is small, but patent with flow through a very small left peroneal artery to the ankle. Left posterior tibial artery is occluded throughout its course. There was collateral reconstitution of a very short segment, small caliber posterior tibial artery at the level of the medial malleolus. The plantar vessels were very small and diseased throughout. Following angioplasty of the left superficial femoral and popliteal arteries, there was less than 10% residual narrowing. There is inline flow with increased flow to the distal reconstituted segment of posterior tibial artery at the ankle at the completion of the case. DESCRIPTION OF PROCEDURE: The patient was taken to the angiogram suite and placed supine on the angiogram table. She underwent continuous cardiovascular monitoring. She remained hemodynamically stable throughout. She was given IV sedation with Versed and fentanyl. Bilateral groins were prepped and draped in normal sterile fashion. 1% lidocaine was infused as local anesthetic in the right groin. Real-time ultrasound was used to visualize the right common femoral artery. Photodocumentation was obtained. Micropuncture needle was used to cannulate the right common femoral artery in a retrograde fashion. Guidewire was advanced without difficulty. Transitional sheath was advanced over the guidewire. Through this transitional sheath, a J-wire was inserted. Over the J-wire, a 5-[place] sheath was inserted. Through this 5[place] sheath, an Omniflush catheter was advanced over a Bentson wire to the suprarenal aorta. Contrast injected images acquired using subtraction angiography of the abdomen with findings as noted above. Catheter was then withdrawn to the distal abdominal aorta and oblique views were obtained over the pelvis and proximal thighs with findings as above. Omniflush catheter and angled Glidewire were used to cannulate the left common iliac artery. Glidewire was advanced distally and the catheter was advanced to the left common femoral artery. Contrast injected images acquired in stage views down the left lower extremity with findings as detailed above. Bentson guidewire was then readvanced parking the tip in the proximal left superficial femoral artery. Catheter was removed. Contrast injected via the right femoral sheath and images acquired in stage views down the right lower extremity with findings as noted above. The short 5-[place] sheath was removed and a 6-Citizen [place] Terumo Destination sheath was advanced via the right femoral access across bifurcation to the left common femoral artery. She was given 5000 units of IV heparin. Through this 6-[place] sheath, a 0.035 NaviCross catheter and angled Glidewire were used to traverse the area of the left superficial femoral artery occlusion. Once the catheter was in the mid left popliteal artery, repeat angiogram showed good catheter position distally. Amplatz wire was parked with the tip in the tibioperoneal trunk. Over this Glidewire, a 4 x 150 mm Godoy balloon was placed across the area of occlusion. This was extended initially down to the mid left popliteal artery. This was inflated to 8 atmospheres for 3 minutes. The balloon was withdrawn more proximally and reinflated to 16 atmospheres for 3 minutes. A followup angiogram showed reconstitution of flow with diffuse irregularity of the left superficial femoral artery. Subsequently, a 5 mm x 20 cm IN.PACT Admiral drug-coated balloon was advanced down to the mid left popliteal artery. This was inflated to 3 atmospheres for 3 minutes. A second 5 mm x 20 cm IN.PACT Admiral drug-coated balloon was then advanced treating the mid and proximal left superficial femoral artery. This was inflated to 4 atmospheres for 3 minutes. Followup angiogram showed a good result with less than 10% residual narrowing of the left superficial femoral and popliteal arteries with good inline flow through the anterior tibial artery. There was better collateral filling to the short segment posterior tibial artery at the ankle. Additional lidocaine was infused as local anesthetic in the right groin. The right femoral sheath was removed and a 6-[place]izen [place] Perclose deployed with good hemostasis. The patient tolerated the procedure well and there were no complications. ESTIMATED BLOOD LOSS: 2 mL. SPECIMENS: None. CONTRAST INFUSED: 93 mL of Visipaque 320 contrast. FLUOROSCOPY TIME: 8.6 minutes. AIR KERMA: 51 milligray per meter squared. JUAN DR: Enoc TID: [id number] CC: JULIETA ISABEL MD
[2021-10-12] MEDS: HYDROcodone/APAP 5/325MG 1 TAB TABLET PO PRN (20:39)
[2021-10-13] MEDS: HYDROcodone/APAP 5/325MG 1 TAB TABLET PO PRN (02:35)
[2021-10-13 02:45] VITALS: BP 109/63
[2021-10-13 04:54] LABS: CALCIUM 7.9 mg/dL (8.5-10.1); CREATININE 0.7 mg/dL (0.6-1.0); GFR 83.7; POTASSIUM 4.1 mmol/L (3.5-5.1)
[2021-10-13 05:02] LABS: CHOLESTEROL/HDL RATIO 4.5
[2021-10-13 07:15] VITALS: BP 131/59
[2021-10-13] MEDS ORDERED: CLOPIDOGREL BISULFATE 75 MG TABLET PO SCH (08:00)
[2021-10-13] MEDS: ASPIRIN 325 MG TABLET PO SCH (08:28)
[2021-10-13] MEDS: CARVEDILOL 12.5 MG TABLET. PO SCH (08:29)
[2021-10-13] MEDS: FLUTICASONE 50MCG/NASAL SPRAY 16GM BOTTLE. NS SCH (08:29)
--- NOTE | 2021-10-13 09:06 | PDOC ---
PROGRESS NOTES Date of Service: DATE: 10/13/21 TIME: 09:04 Subjective Subjective feels better ,want to go home Objective Objective Vital Signs Date Time Temp Pulse Resp B/P (MAP) Pulse Ox O2 Delivery O2 Flow Rate FiO2 10/13/21 08:29 67 131/59 10/13/21 08:00 Room Air 10/13/21 07:15 98.4 20 95 98.4 10/12/21 13:47 2.0 Intake and Output 10/13/21 07:00 Intake Total 730 ml Output Total 2450 ml Balance -1720 ml Intake Oral 730 ml Output Urine Total 2450 ml Physical Exam Abdomen: Soft, No tenderness, No masses Heart: Regular rate, Other (No edema) Extremities: Normal pulses (Bilateral radial pulses), Other (2+ right femoral pulse, cannot appreciate left femoral, she does have a palpable left PT. Her left toes are red with cap refill at about 4 seconds. Motor function and sensation intact. Right foot with cap refill at 3 seconds and palpable PT pulse.) General: Alert, Oriented X3, Cooperative, No acute distress HEENT: Atraumatic Lungs: Normal air movement (Room air) Neuro: Normal speech, Normal tone, Sensation intact Psych/Mental Status: Mental status NL, Mood NL Skin: Other (She has a small circular scab to her left anterior knee, she has a small fissure to her left heel that appears to go through the subcutaneous tissue, there is no fluctuance or drainage or surrounding erythema. She has no wounds to the right foot.) Diagnosis Problem List Problems Medical Problems: (1) Intractable pain Status: Acute (2) Peripheral artery disease Status: Acute Assessment Assessment Problems Medical Problems: (1) Intractable pain Status: Acute (2) Peripheral artery disease Status: Acute FINAL IMPRESSION: 1. Severe peripheral vascular disease. 2. Left heel skin crack breakdown secondary to vascular disease. 3. Chronic obstructive pulmonary disease. 4. Smoker heavy. 5. Pacemaker. PLAN: PROCEDURES PERFORMED:10/12/21 1. Ultrasound-guided right femoral artery access. 2. Abdominal aortogram with selective bilateral lower extremity arteriogram. 3. Left superficial femoral artery and proximal popliteal artery balloon angioplasty (conventional and drug-coated balloon). 4. Right femoral Perclose placement. SURGEON: Don Batista MD Arteriogram and angioplasty done. on Plavix smoking counseling done home today Plan Plan of Care Problems Medical Problems: (1) Intractable pain Status: Acute (2) Peripheral artery disease Status: Acute Comment Review of Relevant I have reviewed the following items david (where applicable) has been applied. Labs Laboratory Tests Test 10/13/21 03:35 Sodium Level 139 mmol/L (136-145) Potassium Level 4.1 mmol/L (3.5-5.1) Chloride Level 103 mmol/L (98-107) Carbon Dioxide Level 29 mmol/L (21-32) Anion Gap 7 (6-14) Blood Urea Nitrogen 14 mg/dL (7-20) Creatinine 0.7 mg/dL (0.6-1.0) Estimated GFR (Cockcroft-Gault) 83.7 Glucose Level 85 mg/dL (70-99) Calcium Level 7.9 mg/dL (8.5-10.1) Triglycerides Level 97 mg/dL (0-150) Cholesterol Level 202 mg/dL (0-200) LDL Cholesterol, Calculated 138 mg/dL (0-100) VLDL Cholesterol, Calculated 19 mg/dL (0-40) Non-HDL Cholesterol Calculated 157 mg/dL (0-129) HDL Cholesterol 45 mg/dL (40-60) Cholesterol/HDL Ratio 4.5 Microbiology 10/11/21 Blood Culture - Preliminary, Resulted NO GROWTH AFTER 1 DAY Medications Current Medications Clopidogrel Bisulfate (Plavix) 75 mg DAILYWBKFT PO Last administered on 10/13/21at 08:28; Start 10/13/21 at 08:00 Clopidogrel Bisulfate (Plavix) 300 mg 1X ONCE PO Last administered on 10/12/21at 15:00; Start 10/12/21 at 14:00; Stop 10/12/21 at 14:01; Status DC Fentanyl Citrate (Fentanyl 2ml Vial) 100 mcg 1X ONCE IV Last administered on 10/12/21at 13:38; Start 10/12/21 at 12:45; Stop 10/12/21 at 12:46; Status DC Fentanyl Citrate (Fentanyl 2ml Vial) 100 mcg STK-MED ONCE .ROUTE ; Start 10/12/21 at 12:17; Stop 10/12/21 at 12:18; Status DC Heparin Sodium (Porcine) (Heparin Sodium) 5,000 unit 1X ONCE IV Last administered on 10/12/21at 13:42; Start 10/12/21 at 13:00; Stop 10/12/21 at 13:01; Status DC Heparin Sodium (Porcine) (Heparin Sodium) 10,000 unit STK-MED ONCE .ROUTE ; Start 10/12/21 at 12:17; Stop 10/12/21 at 12:18; Status DC Heparin Sodium/ Sodium Chloride 500 ml @ As Directed STK-MED ONCE .ROUTE ; Start 10/12/21 at 12:02; Stop 10/12/21 at 12:02; Status DC Heparin Sodium/ Sodium Chloride 1,000 ml @ As Directed STK-MED ONCE .ROUTE ; Start 10/12/21 at 11:42; Stop 10/12/21 at 11:42; Status DC Heparin Sodium/ Sodium Chloride (HEPARIN for ARTERIAL LINE FLUSH) 1,000 unit 1X ONCE IART Last administered on 10/12/21at 13:41; Start 10/12/21 at 12:45; Stop 10/12/21 at 12:46; Status DC Heparin Sodium/ Sodium Chloride (HEPARIN for ARTERIAL LINE FLUSH) 1,000 unit 1X ONCE IART Last administered on 10/12/21at 13:41; Start 10/12/21 at 12:45; Stop 10/12/21 at 12:46; Status DC Iodixanol (Visipaque 320) 100 ml 1X ONCE IART Last administered on 10/12/21at 13:41; Start 10/12/21 at 12:45; Stop 10/12/21 at 12:46; Status DC Iodixanol (Visipaque 320) 100 ml STK-MED ONCE .ROUTE ; Start 10/12/21 at 11:42; Stop 10/12/21 at 11:42; Status DC Lidocaine HCl (Buffered Lidocaine 1%) 3 ml 1X ONCE IJ Last administered on 10/12/21at 13:37; Start 10/12/21 at 12:45; Stop 10/12/21 at 12:46; Status DC Lidocaine HCl (Buffered Lidocaine 1%) 3 ml STK-MED ONCE .ROUTE ; Start 10/12/21 at 11:42; Stop 10/12/21 at 11:42; Status DC Lidocaine HCl (Buffered Lidocaine 1%) 3 ml STK-MED ONCE .ROUTE ; Start 10/12/21 at 13:28; Stop 10/12/21 at 13:28; Status DC Midazolam HCl (Versed) 2 mg 1X ONCE IV Last administered on 10/12/21at 13:40; Start 10/12/21 at 12:45; Stop 10/12/21 at 12:46; Status DC Midazolam HCl (Versed) 2 mg STK-MED ONCE .ROUTE ; Start 10/12/21 at 12:17; Stop 10/12/21 at 12:17; Status DC Vitals/I & O Vital Sign - Last 24 Hours 10/12/21 10/12/21 10/12/21 10/12/21 10:00 10:30 11:00 13:38 Temp 98.1 98.1 Pulse 60 Resp 16 16 B/P (MAP) 134/65 (88) Pulse Ox 93 100 O2 Delivery Room Air Room Air Room Air Nasal Cannula O2 Flow Rate 2.0 10/12/21 10/12/21 10/12/21 10/12/21 13:47 14:00 14:15 14:30 Pulse 69 59 59 77 Resp 16 B/P (MAP) 146/75 (98) 134/70 (91) 136/67 (90) Pulse Ox 100 94 95 95 O2 Delivery Nasal Cannula Room Air Room Air O2 Flow Rate 2.0 10/12/21 10/12/21 10/12/21 10/12/21 14:46 15:00 15:00 15:30 Temp 97.6 97.6 Pulse 59 66 59 Resp 16 B/P (MAP) 138/67 (90) 137/73 (94) 136/67 (90) Pulse Ox 95 95 95 O2 Delivery Room Air Room Air 10/12/21 10/12/21 10/12/21 10/12/21 15:30 16:00 18:35 20:00 Temp 98.1 98.1 Pulse 59 65 Resp 16 B/P (MAP) 130/66 (87) 137/66 (89) Pulse Ox 92 93 O2 Delivery Room Air Room Air Room Air 10/12/21 10/12/21 10/12/21 10/13/21 20:39 21:09 22:25 02:35 Temp 98.4 98.4 Pulse 66 Resp 20 20 16 20 B/P (MAP) 137/64 (88) Pulse Ox 93 95 95 95 O2 Delivery Room Air Room Air Room Air Room Air 10/13/21 10/13/21 10/13/21 10/13/21 02:45 03:05 07:15 08:00 Temp 98.7 98.4 98.7 98.4 Pulse 66 67 Resp 18 20 20 B/P (MAP) 109/63 (78) 131/59 (83) Pulse Ox 96 96 95 O2 Delivery Room Air Room Air Room Air Room Air 10/13/21 10/13/21 08:29 08:29 Pulse 67 67 B/P (MAP) 131/59 131/59 Intake and Output 10/12/21 10/12/21 10/13/21 15:00 23:00 07:00 Intake Total 220 ml 310 ml 200 ml Output Total 550 ml 1050 ml 850 ml Balance -330 ml -740 ml -650 ml Justifications for Admission Other Justification JULIETA ISABEL MD Oct 13, 2021 09:06
[2021-10-13] MEDS ORDERED: CLOP75TA PO (09:10)
[2021-10-13] MEDS ORDERED: ATOR40TA59 PO (09:10)
--- NOTE | 2021-10-13 09:59 | NUR ---
SW following. Discussed with RN, discharge order for home with self care. RN advised no SW needs.
[2021-10-13 11:06] VITALS: BP 107/56
[2021-10-13] MEDS: IV NORMAL SALINE 1000ML BAG 1,000 ML IV SCH (12:02)
[2021-10-13] MEDS ORDERED: ASPI-424 PO (13:17)
--- NOTE | 2021-10-13 14:11 | PDOC ---
Provider Note Date of Service: DATE: 10/13/21 TIME: 14:05 Provider Note Provider Note Vascular S: Space patient resting comfortably in bed, no complaints. O: Awake and alert Vital signs stable, afebrile Abdomen soft NT,ND Right femoral access site dressing is dry and intact, no hematoma or swelling. Left foot is warm, small fissure on heel that is mostly clean without erythema or swelling. Motor and function intact. A/P: 1. Peripheral vascular disease with left heel pressure ulcer and ischemic rest pain. 2. Hypertension. 3. Tobacco abuse. s/p Abdominal aortogram with Left superficial femoral artery and proximal popliteal artery balloon angioplasty (conventional and drug-coated balloon). Recommend daily Aspirin and Statin Lipid Panel reviewed recommend statin therapy, patient has already been started on Atorvastatin Recommend follow up in our office in 4-6 weeks, please have patient call for appointment May remove dressing tomorrow right groin and shower. Daily dressing changes to left heel. Moisturize skin daily.Laboratory Tests Justicifation of Admission Dx: Justifications for Admission: Justification of Admission Dx: Yes BRIANNA GOMEZ [employer]STRUCTION [employer]IAN Oct 13, 2021 14:11
[2021-10-13 14:30] VITALS: BP 112/64
--- NOTE | 2021-10-13 15:39 | NUR ---
Pt discharged home with self care. Discharge instructions and prescriptions discussed. Pt verbalized understanding. Pt assisted to wheelchair and was secured in car with family.
[2021-10-13] MEDS ORDERED: ATORVASTATIN CALCIUM 40 MG TABLET. PO SCH (21:00)
[2021-10-14] MEDS ORDERED: ATORVASTATIN CALCIUM 40 MG TABLET. PO SCH (09:00)
--- NOTE | 2021-10-16 12:31 | PDOC ---
Provider Note Date of Service: DATE: 10/16/21 TIME: 12:31 Provider Note Discharge summary dictated.#[id number] Justifications for Admission Other Justification JULIETA ISABEL MD Oct 16, 2021 12:31
--- NOTE | 2021-10-16 13:34 | DS ---
DATE OF DISCHARGE: 10/13/2021 REASON FOR ADMISSION TO THE HOSPITAL: Left foot ischemia. CONSULTATION: Don Batista MD PROCEDURES DONE: Had a left superficial femoral artery and proximal popliteal artery balloon angioplasty. HOSPITAL COURSE: The patient is a 66-year-old female with history of COPD, smoking, coronary artery disease. She was having pain on the left leg, mostly with ambulation. Arterial Doppler shows decreased blood flow, was admitted to the hospital. Her arteriogram shows a severe left superficial femoral artery, popliteal artery stenosis. The patient underwent a balloon angioplasty and the patient was placed on Plavix and the patient was discharged the next day. FINAL DIAGNOSES: 1. Peripheral vascular disease. 2. Had an arteriogram and left superficial femoral artery and proximal popliteal artery balloon angioplasty. 3. Smoking. 4. Chronic obstructive pulmonary disease. 5. Coronary artery disease. DISPOSITION: Home, on Plavix, continue and smoking counseling was done. Follow up in the office. JONY DR: Kg TID: [id number]
== END 2021-10-13 14:30 | disposition home or self-care (01) ==
LOC: ER 11:45 → ED HOLD 15:18 → 4 NORTH 19:18
PROVIDERS: ADMIT Internal Medicine; ATTEND Internal Medicine
DX: I70.263 Atherosclerosis of native arteries of extremities with gangrene, bilateral legs (principal); Z20.822 Contact with and (suspected) exposure to COVID-19; J44.9 Chronic obstructive pulmonary disease, unspecified; I10 Essential (primary) hypertension; I25.10 Atherosclerotic heart disease of native coronary artery without angina pectoris; L89.629 Pressure ulcer of left heel, unspecified stage; F17.210 Nicotine dependence, cigarettes, uncomplicated; Z79.82 Long term (current) use of aspirin; Z95.0 Presence of cardiac pacemaker
CPT/HCPCS: 36415; 37224; 71046; 73630; 75625; 75716; 76937; 80048; 80053; 80061; 83605; 85025; 85610; 87040; 87426; 93005; 93923; 93926; 96372; 96374; 96376; 99152; 99153; 99285; 99407; C1713; C1725; C1760; C1769; C1892; C1894; C2623; G0269; G0378; J1644; J2250; J3010; J3490; J7030; Q9967; U0003; U0005; 96375; G0379